=== PATIENT | female | born 1990 | race Caucasian/White ===

== ENCOUNTER 2020-01-24 02:09 | Emergency (ER) | payer OTHER ==
[~2020-01-24] VITALS: Ht 165.1 cm; Wt 104.3 kg
[2020-01-24] MEDS ORDERED: ACYCLOVIR 200200 MG PO (02:39)
[2020-01-24 02:45] VITALS: BP 150/99
== END 2020-01-24 02:45 | disposition home or self-care (01) ==
LOC: M.ERS 02:09
DX: B02.9 Zoster without complications (principal)

== ENCOUNTER 2020-03-28 08:46 | Emergency (ER) | payer OTHER ==
[~2020-03-28] VITALS: Ht 167.6 cm; Wt 108.9 kg
[~2020-03-28 08:46] MED LIST: ACYCLOVIR 200200 MG PO
[2020-03-28] MEDS ORDERED: AUGMENTIN 875-1 EACH PO (10:05)
[2020-03-28 10:17] VITALS: BP 153/108
== END 2020-03-28 10:19 | disposition home or self-care (01) ==
LOC: M.ERS 08:46
DX: J02.0 Streptococcal pharyngitis (principal)